=== PATIENT | male | born 2000 | race Caucasian/White ===

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

== ENCOUNTER 2018-11-01 21:26 | Emergency (ER) | payer OTHER ==
[~2018-11-01] VITALS: Ht 188 cm; Wt 83.0 kg
[~2018-11-01 21:26] MED LIST changes: +Bactrim Ds Tab1 EACH PO
== END 2018-11-01 23:04 | disposition left against medical advice (07) ==
LOC: ER 21:26
DX: Z53.21 Procedure and treatment not carried out due to patient leaving prior to being seen by health care provider (principal)

== ENCOUNTER 2018-11-07 16:01 | Emergency (ER) | payer OTHER ==
[~2018-11-07] VITALS: Ht 182.9 cm; Wt 81.7 kg
[2018-11-07] MEDS ORDERED: CEPH500 PO (18:28)
[2018-11-07] MEDS ORDERED: Bactrim Ds Tab1 EACH PO (22:34)
== END 2018-11-07 21:55 | disposition home or self-care (01) ==
LOC: ER 16:01
DX: S56.421A Laceration of extensor muscle, fascia and tendon of right index finger at forearm level, initial encounter (principal); L08.9 Local infection of the skin and subcutaneous tissue, unspecified; W26.0XXA Contact with knife, initial encounter; F17.210 Nicotine dependence, cigarettes, uncomplicated
CPT/HCPCS: 64450; 73130; 99283-25; A9270-GY

== ENCOUNTER 2018-11-22 09:58 | Emergency (ER) | payer OTHER ==
[~2018-11-22] VITALS: Ht 188 cm; Wt 81.7 kg
[2018-11-22] MEDS ORDERED: HYDR1TAB94 PO (12:13)
== END 2018-11-22 12:23 | disposition home or self-care (01) ==
LOC: ER 09:58
DX: S52.124A Nondisplaced fracture of head of right radius, initial encounter for closed fracture (principal); V29.9XXA Motorcycle rider (driver) (passenger) injured in unspecified traffic accident, initial encounter; Z79.899 Other long term (current) drug therapy; F17.210 Nicotine dependence, cigarettes, uncomplicated
CPT/HCPCS: 29105; 73080; 73110; 99283-25

== ENCOUNTER 2019-11-21 18:54 | Emergency (ER) | payer SELFPAY ==
[~2019-11-21] VITALS: Ht 188 cm; Wt 81.7 kg
[~2019-11-21 18:54] MED LIST changes: +HYDR1TAB94 PO
== END 2019-11-21 19:32 | disposition left against medical advice (07) ==
LOC: ER 18:54
DX: Z53.21 Procedure and treatment not carried out due to patient leaving prior to being seen by health care provider (principal)
CPT/HCPCS: 99281

== ENCOUNTER 2019-12-19 13:43 | Emergency (ER) | payer OTHER ==
[~2019-12-19] VITALS: Ht 188 cm; Wt 81.7 kg
[2019-12-19] MEDS ORDERED: Mupirocin22 GM TOP (16:15)
[2019-12-19] MEDS ORDERED: CEPH500 PO (16:15)
== END 2019-12-19 16:23 | disposition home or self-care (01) ==
LOC: ER 13:43
DX: L01.00 Impetigo, unspecified (principal); F17.210 Nicotine dependence, cigarettes, uncomplicated
CPT/HCPCS: 99282

== ENCOUNTER 2020-08-16 10:37 | Emergency (ER) | payer OTHER ==
[~2020-08-16] VITALS: Ht 188 cm; Wt 95.2 kg
[~2020-08-16 10:37] MED LIST changes: +Mupirocin22 GM TOP
== END 2020-08-16 11:30 | disposition home or self-care (01) ==
LOC: ER 10:37
DX: L23.7 Allergic contact dermatitis due to plants, except food (principal); F17.210 Nicotine dependence, cigarettes, uncomplicated
CPT/HCPCS: 96372; 99282-25; J3301

== ENCOUNTER 2020-10-20 10:14 | Emergency (ER) | payer OTHER ==
[~2020-10-20] VITALS: Ht 188 cm; Wt 90.7 kg
[2020-10-20] MEDS ORDERED: METPHE20 PO (10:42)
[2020-10-20] MEDS ORDERED: Norco 5-325 Ta1 EACH PO (11:31)
== END 2020-10-20 11:40 | disposition home or self-care (01) ==
LOC: ER 10:14
DX: S62.92XA Unspecified fracture of left hand, initial encounter for closed fracture (principal); F17.200 Nicotine dependence, unspecified, uncomplicated; Z79.899 Other long term (current) drug therapy
CPT/HCPCS: 29125; 73130; 99283-25

== ENCOUNTER 2021-05-07 20:29 | Emergency (ER) | payer OTHER | END 2021-05-07 21:15 | disposition left against medical advice (07) | LOC: ER 20:29 | DX: Z53.21 Procedure and treatment not carried out due to patient leaving prior to being seen by health care provider (principal) ==